=== PATIENT | female | born 1955 | race American Indian/Alaskan Native ===

== ENCOUNTER 2017-03-22 12:38 | Inpatient (IN) | payer OTHER ==
--- NOTE | 2017-03-22 12:56 | Emergency Department Report ---
Chief Complaint: Chest Pain Stated Complaint: CHEST PAIN Time Seen by Provider: 03/22/17 12:51 - HPI History of Present Illness: PT c/o chest pain x 6 months. PT states the pain started when she had her CABG. 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 PT States the nurse told her to go to the ED. PT states her pain worsened today. PT states her pain goes from her left nipple to back - ROS Review of Systems: + chest pain + dizziness - Exam Physical Exam: obese female, no acute distress noted ambulatory with cane with steady gait RRR MSE screening note: Focused history and physical exam performed. Due to findings the following was ordered: xr, ekg, labs ED Disposition for MSE Condition: Stable
[2017-03-22] MEDS ORDERED: DUONEB *Not for PRN Use IH ONE (12:58)
[2017-03-22 13:19] LABS: Hematocrit 35.1 % (30.3-42.9); Hemoglobin 11.3 gm/dl (10.1-14.3); Mean Corpuscular HGB Conc 32 % (30-34); Mean Corpuscular Hemoglobin 27 pg (28-32); Mean Corpuscular Volume 83 fl (79-97); Platelet Count 191 K/mm3 (140-440); Red Blood Count 4.23 M/mm3 (3.65-5.03); Red Cell Distribution Width 16.2 % (13.2-15.2); White Blood Count 4.4 K/mm3 (4.5-11.0)
[2017-03-22 13:28] LABS: Partial Thromboplastin Time 34.5 Sec. (24.2-36.6)
[2017-03-22 13:39] LABS: Alanine Aminotransferase 15 units/L (7-56); Albumin 3.9 g/dL (3.9-5); Albumin/Globulin Ratio 0.9 %; Alkaline Phosphatase 76 units/L (35-129); Anion Gap 13 mmol/L; BUN/Creatinine Ratio 18.57; Blood Urea Nitrogen 13 mg/dL (7-17); Calcium 9.1 mg/dL (8.4-10.2); Carbon Dioxide 29 mmol/L (22-30); Chloride 102.5 mmol/L (98-107); Glucose 107 mg/dL (65-100); Potassium 4.4 mmol/L (3.6-5.0); Sodium 140 mmol/L (137-145); Total Protein 8.1 g/dL (6.3-8.2)
--- NOTE | 2017-03-22 13:58 | XRay Report ---
ROUTINE CHEST, TWO VIEWS: HISTORY: chest pain. CABG changes are suspected since 08/21/16. Heart size has increased slightly but remains at the upper limits of normal. Normal pulmonary vascularity. The lungs are clear. No evidence for pneumonia, CHF or pneumothorax. IMPRESSION: No acute cardiopulmonary process identified.
[2017-03-22] MEDS ORDERED: MORPHINE IV ONE ×2 (22:49→23:39)
[2017-03-22] MEDS ORDERED: ZOFRAN IV ONE (22:49)
--- NOTE | 2017-03-22 22:54 | Emergency Department Report ---
HPI - General Chief Complaint: Chest Pain Time Seen by Provider: 03/22/17 12:51 - HPI HPI: Room 1 The patient is a 61-year-old female presenting with a chief complaint of chest pain. Patient had a history of four-vessel CABG August 2016. The patient states since the surgery she said and sharp left chest pain. Patient states she has seen her senior technical program manager in the past for this pain and they had sent her to the emergency department. The patient was at physical therapy today when she again developed the chest pain so they advised patient to go to a senior technical program manager. The patient went to senior technical program manager's office however the senior technical program manager wasn't in and so staff instructed the patient to come to the ED. The patient is to nausea vomiting shortness breath and dyspnea on exertion for the past 3 weeks. Location: Left chest Duration: Intermittent since August 2016 Quality:, Sharp, Sticking Severity: Moderate Modifying factors: [see above] Context: [see above] Mode of transportation: [not driving] ED Past Medical Hx - Past Medical History Previous Medical History?: Yes Hx Hypertension: Yes Hx Diabetes: Yes Hx Arthritis: Yes Additional medical history: Hernia, acid reflux, elevated cholesterol - Surgical History Past Surgical History?: Yes Hx Open Heart Surgery: Yes Additional Surgical History: Wrist, rotator cuff, - Family History Family history: no significant - Social History Smoking Status: Never Smoker Substance Use Type: None - Medications Home Medications: Home Medications Medication Instructions Recorded Confirmed Last Taken Type AtorvaSTATin [Lipitor] 40 mg PO DAILY 08/21/16 08/21/16 Unknown History Cholecalciferol (Vitamin D3) 5,000 unit PO DAILY 08/21/16 08/21/16 Unknown History [Vitamin D3 3,000 unit] Hydrochlorothiazide [HCTZ] 25 mg PO QDAY 08/21/16 08/21/16 Unknown History Pantoprazole [Protonix TAB] 40 mg PO QDAY 08/21/16 08/21/16 Unknown History amLODIPine/VALSARTAN [Exforge 1 each PO DAILY 08/21/16 08/21/16 Unknown History 10-320 mg Tablet] Acetaminophen [Acetaminophen TAB] 650 mg PO Q4H PRN #30 tablet 08/23/16 Unknown Rx Aspirin EC [Aspirin Enteric Coated 325 mg PO QDAY tablet 08/23/16 Unknown Rx TAB] AtorvaSTATin [Lipitor] 40 mg PO QHS tablet 08/23/16 Unknown Rx Bisacodyl [Dulcolax suppos] 10 mg [place] QDAY PRN #30 supp.rect 08/23/16 Unknown Rx Carvedilol [Coreg] 6.25 mg PO BID tablet 08/23/16 Unknown Rx Cholecalciferol Vit D3 [Vitamin D3] 5,000 unit PO DAILY tablet 08/23/16 Unknown Rx Magnesium Hydroxide [Milk of 30 ml PO Q4H PRN #30 oral.liqd 08/23/16 Unknown Rx Magnesia] Ondansetron [Zofran INJ] 4 mg IV Q8H PRN #30 vial 08/23/16 Unknown Rx Sodium Chloride 0.9% Int [Sodium 10 ml IV PRN PRN #30 syringe 08/23/16 Unknown Rx Chloride Flush Syringe 10 ml] ED Review of Systems ROS: Stated complaint: CHEST PAIN Other details as noted in HPI Comment: All other systems reviewed and negative Constitutional: denies: chills, fever Eyes: denies: eye pain, eye discharge, vision change ENT: denies: ear pain, throat pain Respiratory: shortness of breath, SOB with exertion Cardiovascular: chest pain Endocrine: no symptoms reported Gastrointestinal: nausea, vomiting Genitourinary: denies: urgency, dysuria, discharge Musculoskeletal: denies: back pain, joint swelling, arthralgia Skin: denies: rash, lesions Neurological: denies: headache, weakness, paresthesias Psychiatric: denies: anxiety, depression Hematological/Lymphatic: denies: easy bleeding, easy bruising Physical Exam - Physical Exam Vital Signs: Vital Signs 03/22/17 03/22/17 03/22/17 12:54 21:15 21:30 Temperature 98 F Pulse Rate 78 67 70 Respiratory 16 13 16 Rate Blood Pressure 186/96 170/80 O2 Sat by Pulse 100 99 100 Oximetry Physical Exam: GENERAL: The patient is well-developed well-nourished female lying on stretcher not appearing to be in acute distress. [] HEENT: Normocephalic. Atraumatic. Extraocular motions are intact. Patient has moist mucous membranes. NECK: Supple. Trachea midline CHEST/LUNGS: Clear to auscultation. There is no respiratory distress noted. HEART/CARDIOVASCULAR: Regular. There is no tachycardia. There is no gallop rub or murmur. ABDOMEN: Abdomen is soft, nontender. Patient has normal bowel sounds. There is no abdominal distention. SKIN: There is no rash. There is trace bilateral lower extremity pitting edema. There is no diaphoresis. NEURO: The patient is awake, alert, and oriented. The patient is cooperative. The patient has normal speech MUSCULOSKELETAL: There is no evidence of acute injury. ED Course Vital Signs 03/22/17 03/22/17 03/22/17 12:54 21:15 21:30 Temperature 98 F Pulse Rate 78 67 70 Respiratory 16 13 16 Rate Blood Pressure 186/96 170/80 O2 Sat by Pulse 100 99 100 Oximetry ED Medical Decision Making - Lab Data Result diagrams: 03/22/17 13:01 03/22/17 13:01 Laboratory Tests 03/22/17 03/22/17 03/22/17 13:01 13:01 13:01 WBC 4.4 L RBC 4.23 Hgb 11.3 Hct 35.1 MCV 83 MCH 27 L MCHC 32 RDW 16.2 H Plt Count 191 Lymph % (Auto) 43.5 H Wirt % (Auto) 11.3 H Eos % (Auto) 5.0 H Baso % (Auto) 1.0 Lymph # 1.9 Wirt # 0.5 Eos # 0.2 Baso # 0.0 Seg Neutrophils % 39.2 L Seg Neutrophils # 1.7 L PT 13.1 INR 1.00 APTT 34.5 Sodium 140 Potassium 4.4 Chloride 102.5 Carbon Dioxide 29 Anion Gap 13 BUN 13 Creatinine 0.7 Estimated GFR > 60 BUN/Creatinine Ratio 18.57 Glucose 107 H Calcium 9.1 Total Bilirubin 0.40 AST 17 ALT 15 Alkaline Phosphatase 76 Troponin T < 0.010 NT-Pro-B Natriuret Pep 98.31 Total Protein 8.1 Albumin 3.9 Albumin/Globulin Ratio 0.9 03/22/17 18:51 WBC RBC Hgb Hct MCV MCH MCHC RDW Plt Count Lymph % (Auto) Wirt % (Auto) Eos % (Auto) Baso % (Auto) Lymph # Wirt # Eos # Baso # Seg Neutrophils % Seg Neutrophils # PT INR APTT Sodium Potassium Chloride Carbon Dioxide Anion Gap BUN Creatinine Estimated GFR BUN/Creatinine Ratio Glucose Calcium Total Bilirubin AST ALT Alkaline Phosphatase Troponin T < 0.010 NT-Pro-B Natriuret Pep Total Protein Albumin Albumin/Globulin Ratio - EKG Data -: EKG Interpreted by Ne EKG shows normal: sinus rhythm Rate: normal - EKG Data When compared to previous EKG there are: changes noted Interpretation: nonspecific ST-T wave jaswinder (Flat T-wave in lead 1, T wave inversion in lead aVL and V2 when compared to previous EKG dated 08/21/2016) - Radiology Data Radiology results: image reviewed (chest x-ray) interpreted by me: Chest x-ray-no focal infiltrates, no pneumothorax - Differential Diagnosis postop pain, ACS, GERD, pericarditis, CHF Critical care attestation.: If time is entered above; I have spent that time in minutes in the direct care of this critically ill patient, excluding procedure time. ED Disposition Clinical Impression: Chest pain, Dyspnea on exertion, T wave inversion in EKG Disposition: 09 OP ADMIT IP TO THIS HOSP Is pt being admited?: Yes Does the pt Need Aspirin: Yes Condition: Fair Instructions: Chest Pain (ED) Referrals: PRIMARY CARE, [Primary Care Provider] - 3-5 Days Time of Disposition: 23:02 (hospitalist paged)
[2017-03-22] MEDS ORDERED: ASPIRIN PO ONE (22:55)
[2017-03-22] MEDS ORDERED: MORPHINE IV PRN (23:45)
[2017-03-22] MEDS ORDERED: DULCOLAX PR PRN (23:45)
--- NOTE | 2017-03-22 23:48 | History and Physical Report ---
History of Present Illness Date of examination: 03/22/17 History of present illness: 61-year-old lady with a history of coronary artery disease, hyperlipidemia, hypertension, GERD comes emergency room with complaints of chest pain in the epigastric area. She describes this pain as sharp, constant since CABG in August , intensity 5/10, no radiation, she cannot identify exacerbating or relieving factors. Some nausea, no shortness of breath, diaphoresis or palpitation Review Of Systems: Constitutional: no weight loss Ears, eyes, nose, mouth and throat: no nasal congestion, no nasal discharge, no sinus pressure, blurry vision, diplopia Neck: No neck pain or rigidity. Cardiovascular:orthopnea, palpitations Respiratory: No shortness of breath, cough Gastrointestinal: abdominal pain, hematochezia Genitourinary : no dysuria, frequency , hematuria Musculoskeletal: no muscle ache Integumentary: no rash, no pruritis Neurological: no parathesias, focal weakness Endocrine: no cold or heat intolerance, no polyuria or polydipsia Hematologic/Lymphatic: no easy bruising, no easy bleeding, no gland swelling Allergic/Immunologic: no urticaria, no angioedema. PAST MEDICAL HISTORY:hypertension, coronary artery disease, hyperlipidemia, GERD PAST SURGICAL HISTORY: CABG, rotator cuff, , wrist FAMILY HISTORY: Coronary artery disease SOCIAL HISTORY: Denies alcohol, tobacco, drugs Medications and Allergies Allergies Allergy/AdvReac Type Severity Reaction Status Date / Time amlodipine besylate Allergy Swelling Verified 08/23/16 12:09 [From Exforge] propofol Allergy Swelling Verified 08/20/16 17:07 valsartan [From Exforge] Allergy Swelling Verified 08/23/16 12:09 Home Medications Medication Instructions Recorded Confirmed Last Taken Type AtorvaSTATin [Lipitor] 40 mg PO DAILY 08/21/16 08/21/16 Unknown History Cholecalciferol (Vitamin D3) 5,000 unit PO DAILY 08/21/16 08/21/16 Unknown History [Vitamin D3 3,000 unit] Hydrochlorothiazide [HCTZ] 25 mg PO QDAY 08/21/16 08/21/16 Unknown History Pantoprazole [Protonix TAB] 40 mg PO QDAY 08/21/16 08/21/16 Unknown History amLODIPine/VALSARTAN [Exforge 1 each PO DAILY 08/21/16 08/21/16 Unknown History 10-320 mg Tablet] Acetaminophen [Acetaminophen TAB] 650 mg PO Q4H PRN #30 tablet 08/23/16 Unknown Rx Aspirin EC [Aspirin Enteric Coated 325 mg PO QDAY tablet 08/23/16 Unknown Rx TAB] AtorvaSTATin [Lipitor] 40 mg PO QHS tablet 08/23/16 Unknown Rx Bisacodyl [Dulcolax suppos] 10 mg [place] QDAY PRN #30 supp.rect 08/23/16 Unknown Rx Carvedilol [Coreg] 6.25 mg PO BID tablet 08/23/16 Unknown Rx Cholecalciferol Vit D3 [Vitamin D3] 5,000 unit PO DAILY tablet 08/23/16 Unknown Rx Magnesium Hydroxide [Milk of 30 ml PO Q4H PRN #30 oral.liqd 08/23/16 Unknown Rx Magnesia] Ondansetron [Zofran INJ] 4 mg IV Q8H PRN #30 vial 08/23/16 Unknown Rx Sodium Chloride 0.9% Int [Sodium 10 ml IV PRN PRN #30 syringe 08/23/16 Unknown Rx Chloride Flush Syringe 10 ml] Exam - Physical Exam Narrative exam: Gen. appearance: Patient lying in bed in no acute distress HEENT: Normocephalic/atraumatic, pupils equal round reactive to light, extra alkaline movement intact, no scleral icterus, no JVD or thyromegaly or nodule, neck is supple, mucous membrane moist, no erythema or exudate Heart: S1-S2, regular rate and rhythm Lungs: Clear to auscultation bilateral breathing comfortable Abdomen: Positive bowel sounds, nontender, nondistended, no organomegaly Extremities: No edema, cyanosis, clubbing Neuro:: Oriented 3 , cranial nerves II-12 intact, speech, motor intact Skin: No rash, nodules, warm dry - Constitutional Vitals: Temp Pulse Resp BP Pulse Ox 98 F 78 13 157/74 99 03/22/17 12:54 03/22/17 23:30 03/22/17 23:30 03/22/17 23:30 03/22/17 23:30 Results - Labs CBC & Chem 7: 03/22/17 13:01 03/22/17 13:01 Labs: Abnormal lab results 03/22/17 03/22/17 Range/Units 13:01 13:01 WBC 4.4 L (4.5-11.0) K/mm3 MCH 27 L (28-32) pg RDW 16.2 H (13.2-15.2) % Lymph % (Auto) 43.5 H (13.4-35.0) % [place] % (Auto) 11.3 H (0.0-7.3) % Eos % (Auto) 5.0 H (0.0-4.3) % Seg Neutrophils % 39.2 L (40.0-70.0) % Seg Neutrophils # 1.7 L (1.8-7.7) K/mm3 Glucose 107 H (65-100) mg/dL - Imaging and Cardiology EKG: image reviewed Abdominal x-ray: image reviewed Assessment and Plan Assessment Atypical chest pain Coronary artery disease Hypertension GERD Plan Admit to medicine Check cardiac enzymes, consult cardiology Continue appropriate outpatient medications DVT prophylaxis
[2017-03-23 00:41] LABS: Creatine Kinase 106 units/L (30-135)
[2017-03-23 01:12] LABS: Creatine Kinase MB < 1.0 ng/mL (0.0-4.0)
[2017-03-23] MEDS: DUONEB *Not for PRN Use IH SCH ×4 (02:14→20:31)
[2017-03-23 06:45] LABS: Basophils % (Auto) 0.6 % (0.0-1.8); Eosinophils % (Auto) 3.9 % (0.0-4.3); Hematocrit 33.4 % (30.3-42.9); Hemoglobin 10.6 gm/dl (10.1-14.3); Mean Corpuscular HGB Conc 32 % (30-34); Mean Corpuscular Hemoglobin 27 pg (28-32); Mean Corpuscular Volume 84 fl (79-97); Platelet Count 188 K/mm3 (140-440); Red Blood Count 3.99 M/mm3 (3.65-5.03); Red Cell Distribution Width 15.9 % (13.2-15.2); White Blood Count 5.2 K/mm3 (4.5-11.0)
[2017-03-23 07:07] LABS: Anion Gap 14 mmol/L; BUN/Creatinine Ratio 18.57; Blood Urea Nitrogen 13 mg/dL (7-17); Calcium 8.7 mg/dL (8.4-10.2); Carbon Dioxide 30 mmol/L (22-30); Chloride 102.2 mmol/L (98-107); Glucose 102 mg/dL (65-100); Potassium 4.3 mmol/L (3.6-5.0); Sodium 142 mmol/L (137-145)
[2017-03-23 07:20] LABS: Creatine Kinase MB 1.2 ng/mL (0.0-4.0)
--- NOTE | 2017-03-23 09:27 | Consultation ---
History of Present Illness Consult date: 03/23/17 Requesting physician: SRIDEVI HUSSEIN Consult reason: chest pain History of present illness: The pt is a 61 YO female with a past medical history significant for CAD s/p CABG x 4 (RODRÍGUEZ to LAD, SVG to RCA, SVG to OM1 andOM2) on 08/25/2016, HTN, DM, HLP and obesity. She is followed in our office by Dr. Gaytan. She presented with c/ o chest pain, BLE numbness/tingling and pain and NUGENT. She states that she has been experiencing chest pain and BLE numbness/tingling intermittently since her CABG in 08/2016. She describes her chest pain as a midsternal and sometimes left- sided intermittent "tugging" sensation which has no clear aggravating or alleviating factors. She has also been experiencing BLE neuropathic pain since CABG, which has been treated with Neurontin 300mg TID. Over the past 3 weeks, the pt has noted progressively worsening NUGENT. She has been compliant with cardiac rehabilitation. She was at cardiac rehabilitation yesterday when she became SOB and developed chest pain. She then left cardiac rehab and drove to our [place] office to try to see Dr. Gaytan but he was not in that office yesterday. She was then advised by our staff to report to [facility] ED for further evaluation and management. Post-CABG echo done 08/26/2016 showed EF 55-60%, impaired relaxation, mildly enlarged RV cavity size, moderate pleural effusion in left lateral region. Past History Past Medical History: CAD, diabetes, hypertension, hyperlipidemia, other (BLE neuropathy) Past Surgical History: CABG Social history: denies: smoking, alcohol abuse, prescription drug abuse Medications and Allergies Allergies Allergy/AdvReac Type Severity Reaction Status Date / Time amlodipine besylate Allergy Swelling Verified 08/23/16 12:09 [From Exforge] propofol Allergy Swelling Verified 08/20/16 17:07 valsartan [From Exforge] Allergy Swelling Verified 08/23/16 12:09 Home Medications Medication Instructions Recorded Confirmed Last Taken Type AtorvaSTATin [Lipitor] 40 mg PO DAILY 08/21/16 08/21/16 Unknown History Cholecalciferol (Vitamin D3) 5,000 unit PO DAILY 08/21/16 08/21/16 Unknown History [Vitamin D3 3,000 unit] Hydrochlorothiazide [HCTZ] 25 mg PO QDAY 08/21/16 08/21/16 Unknown History Pantoprazole [Protonix TAB] 40 mg PO QDAY 08/21/16 08/21/16 Unknown History amLODIPine/VALSARTAN [Exforge 1 each PO DAILY 08/21/16 08/21/16 Unknown History 10-320 mg Tablet] Acetaminophen [Acetaminophen TAB] 650 mg PO Q4H PRN #30 tablet 08/23/16 Unknown Rx Aspirin EC [Aspirin Enteric Coated 325 mg PO QDAY tablet 08/23/16 Unknown Rx TAB] AtorvaSTATin [Lipitor] 40 mg PO QHS tablet 08/23/16 Unknown Rx Bisacodyl [Dulcolax suppos] 10 mg [place] QDAY PRN #30 supp.rect 08/23/16 Unknown Rx Carvedilol [Coreg] 6.25 mg PO BID tablet 08/23/16 Unknown Rx Cholecalciferol Vit D3 [Vitamin D3] 5,000 unit PO DAILY tablet 08/23/16 Unknown Rx Magnesium Hydroxide [Milk of 30 ml PO Q4H PRN #30 oral.liqd 08/23/16 Unknown Rx Magnesia] Ondansetron [Zofran INJ] 4 mg IV Q8H PRN #30 vial 08/23/16 Unknown Rx Sodium Chloride 0.9% Int [Sodium 10 ml IV PRN PRN #30 syringe 08/23/16 Unknown Rx Chloride Flush Syringe 10 ml] Active Meds: Active Medications Acetaminophen (Tylenol) 650 mg PO Q4H PRN PRN Reason: Pain MILD(1-3)/Fever >100.5/RAMOS Albuterol/Ipratropium (Duoneb *Not For Prn Use*) 1 ampul IH Q6HRT [facility] Last Admin: 03/23/17 09:06 Dose: 1 ampul Bisacodyl (Dulcolax) 10 mg [place] QDAY PRN PRN Reason: Constipation unrelieved by MOM Enoxaparin Sodium (Lovenox) 40 mg SUB-Q QDAY [facility] Magnesium Hydroxide (Milk Of Magnesia) 30 ml PO Q4H PRN PRN Reason: Constipation Morphine Sulfate (Morphine) 2 mg IV Q4H PRN PRN Reason: Pain, Moderate (4-6) Ondansetron HCl (Zofran) 4 mg IV Q8H PRN PRN Reason: N/V unrelieved by Reglan Review of Systems Constitutional: no weight loss, no weight gain, no fever, no chills, no sweats Ears, nose, mouth and throat: no ear pain, no nose pain, no sinus pressure, no sinus pain Cardiovascular: chest pain, shortness of breath, dyspnea on exertion, high blood pressure, decreased exercise tolerance, no orthopnea, no palpitations, no rapid/irregular heart beat, no edema, no syncope, no lightheadedness, no paroxysmal nocturnal dyspnea, no leg edema Respiratory: shortness of breath, dyspnea on exertion, no cough, no congestion, no wheezing, no pain on inspiration Gastrointestinal: no abdominal pain, no nausea, no vomiting, no diarrhea, no constipation, no change in bowel habits Genitourinary Female: no pelvic pain, no flank pain, no dysuria, no urinary frequency, no urgency Musculoskeletal: leg numbness/tingling, no neck stiffness, no neck pain, no shooting arm pain, no arm numbness/tingling, no low back pain, no shooting leg pain, no redness of joints, no hot joints, no morning stiffness, no muscle weakness Integumentary: no rash, no pruritis, no redness, no sores, no wounds Neurological: numbness (BLE), tingling (BLE), no head injury, no weakness, no parathesias, no seizures, no syncope Endocrine: no cold intolerance, no heat intolerance Hematologic/Lymphatic: no easy bruising, no easy bleeding, no lymphadenopathy Allergic/Immunologic: no urticaria, no wheezing, no persistent infections Physical Examination Vital Signs Temp Pulse Resp BP Pulse Ox 98 F 78 16 186/96 100 03/22/17 12:54 03/22/17 12:54 03/22/17 12:54 03/22/17 12:54 03/22/17 12:54 General appearance: no acute distress HEENT: Positive: PERRL, Normocephaly Neck: Positive: neck supple, trachea midline Cardiac: Positive: Reg Rate and Rhythm, S1/S2 Lungs: Positive: Decreased Breath Sounds Neuro: Positive: Grossly Intact, Cranial Nerve 2-12 Intact Abdomen: Positive: Unremarkable, Soft, Active Bowel Sounds. Negative: Tender Skin: Positive: Clear, Other (midsternal sternotomy scar). Negative: Rash Musculoskeletal: No Fluid Collection, Normal Range of Motion Extremities: Present: upper extr. pulses, lower extr. pulses. Absent: edema Results 03/23/17 05:49 03/23/17 05:49 Cardiac Enzymes 03/23/17 03/23/17 Range/Units 01:01 05:49 CK-MB (CK-2) < 1.0 1.2 (0.0-4.0) ng/mL CBC 03/23/17 Range/Units 05:49 WBC 5.2 (4.5-11.0) K/mm3 RBC 3.99 (3.65-5.03) M/mm3 Hgb 10.6 (10.1-14.3) gm/dl Hct 33.4 (30.3-42.9) % Plt Count 188 (140-440) K/mm3 Lymph # 2.5 (1.2-5.4) K/mm3 [place] # 0.6 (0.0-0.8) K/mm3 Eos # 0.2 (0.0-0.4) K/mm3 Baso # 0.0 (0.0-0.1) K/mm3 Comprehensive Metabolic Panel 03/23/17 Range/Units 05:49 Sodium 142 (137-145) mmol/L Potassium 4.3 (3.6-5.0) mmol/L Chloride 102.2 (98-107) mmol/L Carbon Dioxide 30 (22-30) mmol/L BUN 13 (7-17) mg/dL Creatinine 0.7 (0.7-1.2) mg/dL Glucose 102 H (65-100) mg/dL Calcium 8.7 (8.4-10.2) mg/dL - Imaging and Cardiology Echo: report reviewed (08/26/2016: EF 55-60%, impaired relaxation, mildly enlarged RV cavity size, moderate pleural effusion in left lateral region) Cardiac cath: report reviewed EKG: image reviewed EKG interpretations - Telemetry EKG Rhythm: Sinus Rhythm - EKG Sinus rhythms and dysrhythmias: sinus rhythm Repolarization changes or abnormalities: nonspecific abnormality, ST segment, and/or T wave Assessment and Plan Assessment: Chest pain, 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 Await findings. Obtain echo to r/o pericardial effusion. Cont ASA, resume home coreg, losartan, plavix, lipitor. Assessment and plan reviewed with pt at bedside. The patient has been seen in conjunction with Dr. Steven who agrees with the assessment and plan of care.
[2017-03-23] MEDS: LOVENOX SUB-Q SCH (10:51)
--- NOTE | 2017-03-23 11:57 | Progress Note ---
Assessment and Plan Assessment and plan: 61-year-old lady with a history of coronary artery disease, hyperlipidemia, hypertension, GERD comes emergency room with complaints of chest pain in the epigastric area. She describes this pain as sharp, constant since CABG in August , intensity 5/10, no radiation, she cannot identify exacerbating or relieving factors. Some nausea, no shortness of breath, diaphoresis or palpitation. She states the pain is worse when she lays flat, she's been having intermittent Pinching sensation in her chest and she had her CABG. Atypical chest pain Status post recent CABG, stress test negative Check echo to rule out pericarditis cardiology appreciated Coronary artery disease -Continue cardiac medications Hypertension Continue BP meds GERD Continue PPI History Interval history: [place] is a 61-year-old woman who presented with chest pain which she describes as a pinching type of pain that she's been having since she had CABG Hospitalist Physical - Physical exam Narrative exam: General.: Appears well, no distress, nontoxic HEENT: Moist mucous membranes, extraocular muscles intact, no lymphadenopathy Neck: supple Cardiac: S1-S2 heard Lungs: clear to auscultation bilaterally Abdomen: soft , nontender, nondistended, bowel sounds positive Extremities: no edema clubbing or cyanosis Skin: no rash or lesions Neurologic: no gross focal deficits Psych: appropriate behavior, appropriate mood, corporative, judgment intact - Constitutional Vitals: Temp Pulse Resp BP Pulse Ox 97.3 F L 78 16 147/80 100 03/23/17 08:00 03/23/17 08:11 03/23/17 08:11 03/23/17 08:00 03/23/17 09:06 General appearance: Present: no acute distress Results - Labs CBC & Chem 7: 03/23/17 05:49 03/23/17 05:49 Labs: Laboratory Last Values WBC 5.2 K/mm3 (4.5-11.0) 03/23/17 05:49 RBC 3.99 M/mm3 (3.65-5.03) 03/23/17 05:49 Hgb 10.6 gm/dl (10.1-14.3) 03/23/17 05:49 Hct 33.4 % (30.3-42.9) 03/23/17 05:49 MCV 84 fl (79-97) 03/23/17 05:49 MCH 27 pg (28-32) L 03/23/17 05:49 MCHC 32 % (30-34) 03/23/17 05:49 RDW 15.9 % (13.2-15.2) H 03/23/17 05:49 Plt Count 188 K/mm3 (140-440) 03/23/17 05:49 Lymph % (Auto) 48.6 % (13.4-35.0) H 03/23/17 05:49 [place] % (Auto) 11.9 % (0.0-7.3) H 03/23/17 05:49 Eos % (Auto) 3.9 % (0.0-4.3) 03/23/17 05:49 Baso % (Auto) 0.6 % (0.0-1.8) 03/23/17 05:49 Lymph # 2.5 K/mm3 (1.2-5.4) 03/23/17 05:49 [place] # 0.6 K/mm3 (0.0-0.8) 03/23/17 05:49 Eos # 0.2 K/mm3 (0.0-0.4) 03/23/17 05:49 Baso # 0.0 K/mm3 (0.0-0.1) 03/23/17 05:49 Seg Neutrophils % 35.0 % (40.0-70.0) L 03/23/17 05:49 Seg Neutrophils # 1.8 K/mm3 (1.8-7.7) 03/23/17 05:49 PT 13.1 Sec. (12.2-14.9) 03/22/17 13:01 INR 1.00 (0.87-1.13) 03/22/17 13:01 APTT 34.5 Sec. (24.2-36.6) 03/22/17 13:01 Sodium 142 mmol/L (137-145) 03/23/17 05:49 Potassium 4.3 mmol/L (3.6-5.0) 03/23/17 05:49 Chloride 102.2 mmol/L (98-107) 03/23/17 05:49 Carbon Dioxide 30 mmol/L (22-30) 03/23/17 05:49 Anion Gap 14 mmol/L 03/23/17 05:49 BUN 13 mg/dL (7-17) 03/23/17 05:49 Creatinine 0.7 mg/dL (0.7-1.2) 03/23/17 05:49 Estimated GFR > 60 ml/min 03/23/17 05:49 BUN/Creatinine Ratio 18.57 % 03/23/17 05:49 Glucose 102 mg/dL (65-100) H 03/23/17 05:49 Calcium 8.7 mg/dL (8.4-10.2) 03/23/17 05:49 Total Bilirubin 0.40 mg/dL (0.1-1.2) 03/22/17 13:01 AST 17 units/L (5-40) 03/22/17 13:01 ALT 15 units/L (7-56) 03/22/17 13:01 Alkaline Phosphatase 76 units/L (35-129) 03/22/17 13:01 Total Creatine Kinase 92 units/L (30-135) 03/23/17 05:49 CK-MB (CK-2) 1.2 ng/mL (0.0-4.0) 03/23/17 05:49 CK-MB (CK-2) Rel Index 1.3 (0-4) 03/23/17 05:49 Troponin T < 0.010 ng/mL (0.00-0.029) 03/23/17 05:49 NT-Pro-B Natriuret Pep 98.31 pg/mL (0-900) 03/22/17 13:01 Total Protein 8.1 g/dL (6.3-8.2) 03/22/17 13:01 Albumin 3.9 g/dL (3.9-5) 03/22/17 13:01 Albumin/Globulin Ratio 0.9 % 03/22/17 13:01 - Imaging and Cardiology Chest x-ray: image reviewed (no acute findings)
[2017-03-23] MEDS ORDERED: LEXISCAN IV ONE ×2 (12:13→13:00)
--- NOTE | 2017-03-23 14:31 | Event Note ---
Date: 03/23/17 lexiscan MPI stress test this AM showed small mild fixed apical defect of uncertain significance, no ischemia, EF 76%. Await echo. Nila JEAN NP / DR. BUTLER
[2017-03-23] MEDS: ZOFRAN IV PRN (16:22)
[2017-03-23] MEDS: TYLENOL PO PRN (20:31)
[2017-03-23] MEDS: MILK OF MAGNESIA PO PRN (20:32)
[2017-03-23] MEDS: COREG PO SCH (21:38)
[2017-03-24] MEDS: DUONEB *Not for PRN Use IH SCH ×4 (01:53→21:03)
--- NOTE | 2017-03-24 04:56 | Treadmill Report ---
SINGLE ISOTOPE DUAL STUDY MYOCARDIAL PERFUSION SCAN REPORT DATE OF PROCEDURE: 03/23/2017 SEEN BY: Paolo Elizondo MD. DESCRIPTION OF PROCEDURE: The patient received 10 mCi of technetium 99m Myoview intravenously under resting conditions. Resting myocardial perfusion scan was done. Subsequently, the patient underwent Lexiscan stress test as per the protocol. During Lexiscan stress, the patient received 28 mCi of technetium 99m Myoview intravenously. After 30-60 minutes, post stress images were done. Computerized reconstruction images were performed for analysis. The post-stress images revealed small mild apical perfusion defect. Gated study did not reveal any wall motion abnormality. The left ventricular ejection fraction was normal and it was calculated to be 76%. The resting images again revealed small mild apical perfusion defect. CONCLUSIONS: 1. Small mild fixed and apical perfusion defect of uncertain significance. 2. No wall motion abnormality. 3. Hyperdynamic left ventricle with left ventricular ejection fraction of 76%. [facility]# [id number] [facility]
[2017-03-24] MEDS: COREG PO SCH ×2 (10:54→21:09)
[2017-03-24] MEDS: LOVENOX SUB-Q SCH (10:54)
[2017-03-24] MEDS: COZAAR PO SCH (10:55)
[2017-03-24] MEDS: BABY ASPIRIN PO SCH (10:55)
[2017-03-24] MEDS: ZOFRAN IV PRN (10:55)
[2017-03-24] MEDS: TYLENOL PO PRN ×2 (10:56→21:10)
[2017-03-24] MEDS: PLAVIX PO SCH (10:57)
--- NOTE | 2017-03-24 11:11 | Progress Note ---
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 Obesity Plan: s/p lexiscan MPI stress test yesterday, which showed small mild fixed apical defect of uncertain significance, no ischemia, EF 76%. Await limited echo. Cont ASA, coreg, losartan, plavix, lipitor. Assessment and plan reviewed with pt at bedside. The patient has been seen in conjunction with Dr. Steven who agrees with the assessment and plan of care. Subjective Date of service: 03/24/17 Principal diagnosis: atypical chest pain Interval history: Pt resting comfortably, c/o some nausea overnight. Underwent limited echo this AM. Still c/o midsternal chest "tugging" discomfort. Also c/o some left-sided soreness under her left breast, which was elicited this AM with echo probe during echo. Objective Last Vital Signs Temp 97.6 F 03/24/17 07:57 Pulse 67 03/24/17 10:55 Resp 20 03/24/17 07:57 BP 142/79 03/24/17 10:55 Pulse Ox 96 03/24/17 07:57 - Physical Examination HEENT: Positive: PERRL, Normocephaly Neck: Positive: neck supple, trachea midline Cardiac: Positive: Reg Rate and Rhythm, S1/S2 Lungs: Positive: clear to auscultation Neuro: Positive: Grossly Intact, Cranial Nerve 2-12 Intact Abdomen: Positive: Unremarkable, Soft, Active Bowel Sounds. Negative: Tender Skin: Positive: Clear, Other (midsternal sternotomy scar). Negative: Rash Musculoskeletal: No Fluid Collection, Normal Range of Motion Extremities: Present: upper extr. pulses, lower extr. pulses. Absent: edema - Imaging and Cardiology EKG: image reviewed Echo: report reviewed (08/26/2016: EF 55-60%, impaired relaxation, mildly enlarged RV cavity size, moderate pleural effusion in left lateral region) Cardiac cath: report reviewed - EKG Sinus rhythms and dysrhythmias: sinus rhythm Repolarization changes or abnormalities: nonspecific abnormality, ST segment, and/or T wave
[2017-03-24] MEDS: MILK OF MAGNESIA PO PRN (12:37)
--- NOTE | 2017-03-24 16:11 | Event Note ---
Date: 03/24/17 Echo reviewed with [facility]. Currently stable cardiac status. Pt may discharge home from cardiology standpoint. Recommend follow up in our office with Denice Thacker NP, within 2 weeks of hospital discharge ([phone]). Nila JEAN NP / DR. BUTLER
--- NOTE | 2017-03-24 18:20 | Progress Note ---
Assessment and Plan Assessment and plan: 61-year-old lady with a history of coronary artery disease, hyperlipidemia, hypertension, GERD comes emergency room with complaints of chest pain in the epigastric area. She describes this pain as sharp, constant since CABG in August , intensity 5/10, no radiation, she cannot identify exacerbating or relieving factors. Some nausea, no shortness of breath, diaphoresis or palpitation. She states the pain is worse when she lays flat, she's been having intermittent Pinching sensation in her chest and she had her CABG. Atypical chest pain Status post recent CABG, stress test negative Check echo to rule out pericarditis cardiology appreciated Coronary artery disease -Continue cardiac medications Hypertension Continue BP meds GERD Continue PPI History Interval history: [place] is a 61-year-old woman who presented with chest pain which she describes as a pinching type of pain that she's been having since she had CABG States that pain is unchanged, as far, Pinching Sensation, All over Her Chest Wall. She denies shortness of breath Hospitalist Physical - Physical exam Narrative exam: General.: Appears well, no distress, nontoxic HEENT: Moist mucous membranes, extraocular muscles intact, no lymphadenopathy Neck: supple Cardiac: S1-S2 heard Lungs: clear to auscultation bilaterally Abdomen: soft , nontender, nondistended, bowel sounds positive Extremities: no edema clubbing or cyanosis Skin: no rash or lesions Neurologic: no gross focal deficits Psych: appropriate behavior, appropriate mood, corporative, judgment intact - Constitutional Vitals: Temp Pulse Resp BP Pulse Ox 97.1 F L 74 16 144/76 97 03/24/17 15:44 03/24/17 15:44 03/24/17 15:44 03/24/17 15:44 03/24/17 15:44 General appearance: Present: no acute distress Results - Labs CBC & Chem 7: 03/23/17 05:49 03/23/17 05:49 Labs: Laboratory Last Values WBC 5.2 K/mm3 (4.5-11.0) 03/23/17 05:49 RBC 3.99 M/mm3 (3.65-5.03) 03/23/17 05:49 Hgb 10.6 gm/dl (10.1-14.3) 03/23/17 05:49 Hct 33.4 % (30.3-42.9) 03/23/17 05:49 MCV 84 fl (79-97) 03/23/17 05:49 MCH 27 pg (28-32) L 03/23/17 05:49 MCHC 32 % (30-34) 03/23/17 05:49 RDW 15.9 % (13.2-15.2) H 03/23/17 05:49 Plt Count 188 K/mm3 (140-440) 03/23/17 05:49 Lymph % (Auto) 48.6 % (13.4-35.0) H 03/23/17 05:49 [place] % (Auto) 11.9 % (0.0-7.3) H 03/23/17 05:49 Eos % (Auto) 3.9 % (0.0-4.3) 03/23/17 05:49 Baso % (Auto) 0.6 % (0.0-1.8) 03/23/17 05:49 Lymph # 2.5 K/mm3 (1.2-5.4) 03/23/17 05:49 [place] # 0.6 K/mm3 (0.0-0.8) 03/23/17 05:49 Eos # 0.2 K/mm3 (0.0-0.4) 03/23/17 05:49 Baso # 0.0 K/mm3 (0.0-0.1) 03/23/17 05:49 Seg Neutrophils % 35.0 % (40.0-70.0) L 03/23/17 05:49 Seg Neutrophils # 1.8 K/mm3 (1.8-7.7) 03/23/17 05:49 PT 13.1 Sec. (12.2-14.9) 03/22/17 13:01 INR 1.00 (0.87-1.13) 03/22/17 13:01 APTT 34.5 Sec. (24.2-36.6) 03/22/17 13:01 Sodium 142 mmol/L (137-145) 03/23/17 05:49 Potassium 4.3 mmol/L (3.6-5.0) 03/23/17 05:49 Chloride 102.2 mmol/L (98-107) 03/23/17 05:49 Carbon Dioxide 30 mmol/L (22-30) 03/23/17 05:49 Anion Gap 14 mmol/L 03/23/17 05:49 BUN 13 mg/dL (7-17) 03/23/17 05:49 Creatinine 0.7 mg/dL (0.7-1.2) 03/23/17 05:49 Estimated GFR > 60 ml/min 03/23/17 05:49 BUN/Creatinine Ratio 18.57 % 03/23/17 05:49 Glucose 102 mg/dL (65-100) H 03/23/17 05:49 Calcium 8.7 mg/dL (8.4-10.2) 03/23/17 05:49 Total Bilirubin 0.40 mg/dL (0.1-1.2) 03/22/17 13:01 AST 17 units/L (5-40) 03/22/17 13:01 ALT 15 units/L (7-56) 03/22/17 13:01 Alkaline Phosphatase 76 units/L (35-129) 03/22/17 13:01 Total Creatine Kinase 92 units/L (30-135) 03/23/17 05:49 CK-MB (CK-2) 1.2 ng/mL (0.0-4.0) 03/23/17 05:49 CK-MB (CK-2) Rel Index 1.3 (0-4) 03/23/17 05:49 Troponin T < 0.010 ng/mL (0.00-0.029) 03/23/17 13:47 NT-Pro-B Natriuret Pep 98.31 pg/mL (0-900) 03/22/17 13:01 Total Protein 8.1 g/dL (6.3-8.2) 03/22/17 13:01 Albumin 3.9 g/dL (3.9-5) 03/22/17 13:01 Albumin/Globulin Ratio 0.9 % 03/22/17 13:01
[2017-03-25] MEDS: DUONEB *Not for PRN Use IH SCH ×3 (02:35→14:22)
[2017-03-25] MEDS ORDERED: PROTONIX PO SCH (10:00)
[2017-03-25] MEDS ORDERED: HCTZ PO SCH (10:00)
--- NOTE | 2017-03-25 10:22 | Discharge Summary ---
Providers - Providers Date of Admission: 03/22/17 23:45 Attending physician: NARENDRA GRAMAJO MD Primary care physician: SHASHANK AHN MD Hospitalization Condition: Fair Hospital course: 61-year-old lady with a history of coronary artery disease, hyperlipidemia, hypertension, GERD comes emergency room with complaints of chest pain in the epigastric area, she's been having intermittent Pinching sensation in her chest since she had her CABG. She was comanaged by cardiology, she received a stress test which was negative, she also received an echo that was negative for pericarditis, she also had PFT which only showed mild restrictive disease, VQ scan and LE doppler was neg for VTE. Her pain was most likely due to costochondritis and anxiety. Therefore she was advised to take over-the- counter pain medications, specifically tylenol, and she was also given low- dose Xanax. Discharge diagnoses Atypical chest pain due to costochondritis Anxiety disorder CAD Hypertension GERD Disposition: DC- TO HOME OR SELFCARE Time spent for discharge: 33 minutes Core Measure Documentation - Palliative Care Palliative Care/ Comfort Measures: Not Applicable - Core Measures Any of the following diagnoses?: none Exam - Constitutional Vitals: Temp Pulse Resp BP Pulse Ox 97.7 F 71 20 167/84 97 03/25/17 07:40 03/25/17 07:51 03/25/17 07:40 03/25/17 07:40 03/25/17 07:51 General appearance: Present: no acute distress, well-nourished - EENT Eyes: Present: PERRL ENT: hearing intact, clear oral mucosa - Neck Neck: Present: supple, normal ROM - Respiratory Respiratory effort: normal Respiratory: bilateral: CTA - Cardiovascular Heart Sounds: Present: S1 & S2. Absent: rub, click - Extremities Extremities: pulses symmetrical, No edema Peripheral Pulses: within normal limits - Abdominal General gastrointestinal: Present: soft, non-tender, non-distended, normal bowel sounds Female genitourinary: Present: normal - Integumentary Integumentary: Present: clear, warm, dry - Musculoskeletal Musculoskeletal: gait normal, strength equal bilaterally - Psychiatric Psychiatric: appropriate mood/affect, intact judgment & insight - Neurologic Neurologic: CNII-XII intact, moves all extremities Plan Follow up with: PRIMARY CARE, [Primary Care Provider] - 3-5 Days INDESIREE MADDOX MD [Staff Physician] - 7 Days Prescriptions: AtorvaSTATin [Lipitor] 20 mg PO QHS #30 tablet ALPRAZolam [Xanax TAB] 0.5 mg PO BID PRN #30 tab PRN Reason: Anxiety Aspirin EC [Aspirin Enteric Coated TAB] 81 mg PO QDAY #30 tablet. Carvedilol [Coreg] 25 mg PO BID #60 tablet Clopidogrel [Plavix] 75 mg PO QDAY #30 tablet Hydrochlorothiazide [HCTZ] 25 mg PO QDAY #30 tablet Losartan [Cozaar] 100 mg PO QDAY 30 Days Pantoprazole [Protonix TAB] 40 mg PO QDAY #30 tablet traMADol [Ultram 50 MG tab] 50 mg PO Q4HR PRN #30 tablet PRN Reason: Pain
[2017-03-25] MEDS: BABY ASPIRIN PO SCH (10:26)
[2017-03-25] MEDS: COZAAR PO SCH (10:26)
[2017-03-25] MEDS: COREG PO SCH (10:26)
[2017-03-25] MEDS: PLAVIX PO SCH (10:27)
[2017-03-25] MEDS: LOVENOX SUB-Q SCH (10:27)
--- NOTE | 2017-03-25 10:55 | Cat Scan Report ---
FINAL REPORT EXAM: CT ANGIO CHEST HISTORY: sob TECHNIQUE: A CT angiogram was obtained of the chest following intravenous injection of 100 cc of Omnipaque 350. MIP reconstructions were obtained also. There are no previous studies available for comparison. FINDINGS: There is no evidence of pulmonary embolus or aortic dissection. Heart is mildly enlarged. There are sternotomy sutures noted. There is a small right-sided pleural effusion. There are no localized infiltrates. At the thoracoabdominal junction there is a moderate size hiatal hernia. At the thoracic inlet the thyroid gland appears normal. The skeletal structures reveals multilevel disc degeneration in the thoracic spine. IMPRESSION: No evidence of pulmonary embolus or aortic dissection. Small right-sided pleural effusion. Moderate size hiatal hernia noted.
[2017-03-25 16:02] VITALS: BP 145/68
--- NOTE | 2017-03-28 07:33 | Vascular Lab Report ---
LOWER EXTREMITY VENOUS DUPLEX: REASON FOR EXAM: Edema of the lower extremities. COMMENTS ON THE RIGHT: All veins visualized are freely compressible without evidence of internal echogenicity. Flow is spontaneous and phasic throughout. COMMENTS ON THE LEFT: All veins visualized are freely compressible without evidence of internal echogenicity. Flow is spontaneous and phasic throughout. IMPRESSION: No evidence of acute or chronic deep venous thrombosis in either lower extremity.
== END 2017-03-25 18:14 | disposition home or self-care (01) | DRG 206 ==
LOC: ED 12:38 → 4A 23:45
PROVIDERS: ADMIT Internal Medicine; ATTEND Internal Medicine
DX: M94.0 Chondrocostal junction syndrome [Tietze] (principal); Z68.42 Body mass index [BMI] 45.0-49.9, adult; I10 Essential (primary) hypertension; K21.9 Gastro-esophageal reflux disease without esophagitis; E78.5 Hyperlipidemia, unspecified; E66.9 Obesity, unspecified; M19.90 Unspecified osteoarthritis, unspecified site; I25.10 Atherosclerotic heart disease of native coronary artery without angina pectoris; E11.40 Type 2 diabetes mellitus with diabetic neuropathy, unspecified; F41.9 Anxiety disorder, unspecified; Z88.8 Allergy status to other drugs, medicaments and biological substances; Z98.891 History of uterine scar from previous surgery; Z79.82 Long term (current) use of aspirin; Z79.899 Other long term (current) drug therapy; Z82.49 Family history of ischemic heart disease and other diseases of the circulatory system; Z95.1 Presence of aortocoronary bypass graft
CPT/HCPCS: 36415; 71020; 71275; 78452; 80048; 80053; 82550; 82553; 83880; 84484; 85025; 85379; 85610; 85730; 93005; 93010; 93017; 93308; 93321; 93325; 93970; 94010; 94640; 94760; 96374; 96375; A9270-GY; A9502; J1650; J2270; J2405; J2785; Q9967

== ENCOUNTER 2020-03-25 11:43 | Outpatient (CLI) | payer OTHER ==
--- NOTE | 2020-03-25 12:59 | XRay Report ---
RIGHT ELBOW 3 VIEWS INDICATION / CLINICAL INFORMATION: PAIN IN RIGHT ELBOW. COMPARISON: None available. FINDINGS: No significant skeletal abnormality Signer Name: Rey Zapata MD FACSaurabh Signed: 03/25/2020 12:54 PM Workstation Name: [id number]
== END 2020-03-25 11:44 | disposition home or self-care (01) ==
LOC: XRAY 11:43
PROVIDERS: ATTEND Internal Medicine
DX: M25.521 Pain in right elbow (principal)

== ENCOUNTER 2021-05-17 09:49 | Emergency (ER) | payer OTHER ==
[2021-05-17] MEDS ORDERED: SODIUM CHLORIDE 0.9% 1000 ML 1,000 ML IV ONE (10:30)
[2021-05-17] MEDS ORDERED: ONDANSETRON 4 MG/2 ML INJ IV ONE ×2 (10:30→12:50)
[2021-05-17] MEDS ORDERED: MORPHINE 4 MG/1 ML INJ IV ONE ×2 (10:30→12:50)
[2021-05-17] MEDS ORDERED: PANTOPRAZOLE 40 MG INJ IV ONE (10:31)
--- NOTE | 2021-05-17 10:36 | Emergency Department Report ---
ED Abdominal Pain HPI - General Chief Complaint: Abdominal Pain Stated Complaint: ABD PAIN AND CRAMPS WITH BODYACHES PUI?: No Time Seen by Provider: 05/17/21 10:03 Source: patient Mode of arrival: Ambulatory Limitations: No Limitations - History of Present Illness Initial Comments: Chief complaint stomach hurts HPI: 65-year-old female with history of asthma, COPD, CAD status post four- vessel CABG, hypertension, diabetes mellitus, arthritis, GERD, hyperlipidemia who presents with abdominal pain since Tuesday morning. She ate tacos at home. 2 AM she had the onset of global abdominal pain worse in the right upper quadrant. She had associated vomiting diarrhea. Severe sharp pain alternating with [id number]-vqa-lifagub sensation. Abdominal surgeries include 2 C-sections. No history of appendectomy, no history of cholecystectomy. No history of hysterectomy. PCP Dr. Marie [employer] Officer Dr. Hussein RODRIGUEZ Complaint: abdominal pain -: Gradual Location: diffuse Radiation: RUQ Severity: severe Severity scale (0 -10): 10 Quality: cramping, aching, sharp Consistency: constant Improves With: nothing Worsens With: nothing Associated Symptoms: nausea, vomiting, diarrhea - Related Data Previous Rx's Medication Instructions Recorded Last Taken Type ALPRAZolam [Xanax TAB] 0.5 mg PO BID PRN #30 tab 03/25/17 Unknown Rx Aspirin EC [Halfprin EC] 81 mg PO QDAY #30 tablet. 03/25/17 Unknown Rx AtorvaSTATin [Lipitor] 20 mg PO QHS #30 tablet 03/25/17 Unknown Rx Clopidogrel [Plavix] 75 mg PO QDAY #30 tablet 03/25/17 Unknown Rx Losartan [Cozaar] 100 mg PO QDAY 30 Days tablet 03/25/17 Unknown Rx Pantoprazole [Protonix TAB] 40 mg PO QDAY #30 tablet 03/25/17 Unknown Rx carvediloL [Coreg] 25 mg PO BID #60 tablet 03/25/17 Unknown Rx hydroCHLOROthiazide [HCTZ] 25 mg PO QDAY #30 tablet 03/25/17 Unknown Rx traMADoL [Ultram 50 MG tab] 50 mg PO Q4HR PRN #30 tablet 03/25/17 Unknown Rx Ciprofloxacin HCl 500 mg PO BID 3 Days #6 tablet 05/17/21 Unknown Rx Promethazine [Phenergan] 25 mg PO Q6HR PRN #10 tab 05/17/21 Unknown Rx Allergies Allergy/AdvReac Type Severity Reaction Status Date / Time amlodipine besylate Allergy Swelling Verified 08/23/16 12:09 [From [employer]] propofol Allergy Swelling Verified 08/20/16 17:07 valsartan [From [employer]] Allergy Swelling Verified 08/23/16 12:09 ED Review of Systems ROS: Stated complaint: ABD PAIN AND CRAMPS WITH BODYACHES Other details as noted in HPI Comment: All other systems reviewed and negative Constitutional: denies: chills, fever, malaise Respiratory: denies: cough, shortness of breath Cardiovascular: denies: chest pain Gastrointestinal: abdominal pain, nausea, vomiting, diarrhea ED Past Medical Hx - Past Medical History Previous Medical History?: Yes Hx Hypertension: Yes Hx Congestive Heart Failure: No Hx Diabetes: Yes Hx Arthritis: Yes Hx Asthma: No Hx COPD: No Additional medical history: Hernia, acid reflux, elevated cholesterol - Surgical History Past Surgical History?: Yes Hx Open Heart Surgery: Yes Additional Surgical History: Wrist, rotator cuff, - Social History Smoking Status: Never Smoker - Medications Home Medications: Home Medications Medication Instructions Recorded Confirmed Last Taken Type ALPRAZolam [Xanax TAB] 0.5 mg PO BID PRN #30 tab 03/25/17 Unknown Rx Aspirin EC [Halfprin EC] 81 mg PO QDAY #30 tablet. 03/25/17 Unknown Rx AtorvaSTATin [Lipitor] 20 mg PO QHS #30 tablet 03/25/17 Unknown Rx Clopidogrel [Plavix] 75 mg PO QDAY #30 tablet 03/25/17 Unknown Rx Losartan [Cozaar] 100 mg PO QDAY 30 Days tablet 03/25/17 Unknown Rx Pantoprazole [Protonix TAB] 40 mg PO QDAY #30 tablet 03/25/17 Unknown Rx carvediloL [Coreg] 25 mg PO BID #60 tablet 03/25/17 Unknown Rx hydroCHLOROthiazide [HCTZ] 25 mg PO QDAY #30 tablet 03/25/17 Unknown Rx traMADoL [Ultram 50 MG tab] 50 mg PO Q4HR PRN #30 tablet 03/25/17 Unknown Rx Ciprofloxacin HCl 500 mg PO BID 3 Days #6 tablet 05/17/21 Unknown Rx Promethazine [Phenergan] 25 mg PO Q6HR PRN #10 tab 05/17/21 Unknown Rx ED Physical Exam - General Limitations: No Limitations General appearance: alert, in no apparent distress, other (In obvious discomfort, holding emesis bag, holding abdomen with other hand) - Head Head exam: Present: atraumatic, normocephalic - Eye Eye exam: Present: normal appearance - ENT ENT exam: Present: mucous membranes moist - Neck Neck exam: Present: normal inspection, full ROM - Respiratory Respiratory exam: Present: normal lung sounds bilaterally. Absent: respiratory distress, wheezes, rales, rhonchi - Cardiovascular Cardiovascular Exam: Present: regular rate, normal rhythm, normal heart sounds. Absent: systolic murmur, diastolic murmur, rubs, gallop - GI/Abdominal GI/Abdominal exam: Present: soft, distended, tenderness (Right upper quadrant reproducible tenderness), guarding, normal bowel sounds. Absent: rebound - Extremities Exam Extremities exam: Present: normal inspection - Neurological Exam Neurological exam: Present: alert, oriented X3 - Psychiatric Psychiatric exam: Present: normal affect, normal mood - Skin Skin exam: Present: warm, dry, intact, normal color. Absent: rash ED Course Vital Signs 05/17/21 05/17/21 05/17/21 09:53 10:52 11:00 Temperature 99.9 F H Pulse Rate 102 H 93 H Respiratory 20 17 Rate Blood Pressure 152/85 144/85 O2 Sat by Pulse 95 96 94 Oximetry 05/17/21 05/17/21 05/17/21 11:09 11:15 11:31 Temperature Pulse Rate 90 86 Respiratory 18 13 Rate Blood Pressure 144/85 135/76 O2 Sat by Pulse 97 94 92 Oximetry 05/17/21 05/17/21 12:01 12:15 Temperature Pulse Rate Respiratory Rate Blood Pressure 135/76 O2 Sat by Pulse 93 95 Oximetry ED Medical Decision Making - Lab Data Result diagrams: 05/17/21 10:41 05/17/21 10:41 - Radiology Data Radiology results: report reviewed Patient Name: DWAYNE GRIFFIN Gender: Female Date of : 1955 Referring Provider: TAMI GODINEZ Organization: [facility] Accession Number: [id number] Requested Date: May 17, 2021 11:55 Report Status: Final Requested Procedure: 1 Procedure Description: CT abdomen pelvis w con Modality: CT Findings Reporting MD: Merrick Bedolla Dictation Time: May 17, 2021 11:31 Chief Operator Reformer: Not available Railway Equipment Operator Date: CT ABDOMEN AND PELVIS WITH CONTRAST INDICATION / CLINICAL INFORMATION: R.U.Q. abdominal pain with nausea and vomiting x 4 days. TECHNIQUE: Axial CT images were obtained through the abdomen and pelvis after 100 cc Omnipaque [address] scans at this location are performed using CT dose reduction for ALARA by means of automated exposure control. COMPARISON: None available. FINDINGS: LOWER CHEST: There are trace pleural effusions with mild bibasilar atelectasis. There is moderate coronary atherosclerosis with partially visualized sternotomy changes. No other significant abnormality. LIVER: No significant abnormality. GALLBLADDER: No significant abnormality. BILE DUCTS: No significant abnormality. PANCREAS: No significant abnormality. SPLEEN: No significant abnormality. ADRENALS: No significant abnormality. KIDNEYS / URETERS: No significant abnormality. STOMACH / SMALL BOWEL: No significant abnormality. COLON: There is generalized moderate thickening, most notable along the cecum and ascending colon where there is also mild/ moderate surrounding inflammation. No other significant abnormality. APPENDIX: No significant abnormality. PERITONEUM: No free fluid. No free air. No fluid collection. LYMPH NODES: No significant adenopathy. AORTA / ARTERIES: No significant abnormality. IVC / VEINS: No significant abnormality. URINARY BLADDER: No significant abnormality. REPRODUCTIVE ORGANS: No significant abnormality. ADDITIONAL FINDINGS: None. BONES: No acute findings. There are mild degenerative changes of the spine and hips. IMPRESSION: 1. Evidence of uncomplicated acute pancolitis, most significant along the right colon. 2. Additional findings as above. [facility] [address] , [address] [place] [address] - Medical Decision Making This 65-year-old female who presents with abdominal pain and right-sided tenderness vomiting diarrhea since Tuesday morning. Symptoms improved with IV morphine IV Zofran IV fluid normal saline bolus. CT revealed right-sided pancolitis which corresponds with my impression food poisoning. Patient prescribed ciprofloxacin promethazine. Critical care attestation.: If time is entered above; I have spent that time in minutes in the direct care of this critically ill patient, excluding procedure time. ED Disposition Clinical Impression: Food poisoning Disposition: HOME / SELF CARE / HOMELESS Is pt being admited?: No Does the pt Need Aspirin: No Condition: Stable Instructions: Abdominal Pain (ED), Food Poisoning Prescriptions: Ciprofloxacin HCl 500 mg PO BID 3 Days #6 tablet Promethazine [Phenergan] 25 mg PO Q6HR PRN #10 tab PRN Reason: Nausea Referrals: PRIMARY CARE, [Primary Care Provider] - as needed
[2021-05-17 11:01] LABS: Basophils % (Auto) 0.3 % (0.0-1.8); Hematocrit 38.8 % (30.3-42.9); Hemoglobin 12.4 gm/dl (10.1-14.3); Lymphocytes # (Auto) 1.3 K/mm3 (1.2-5.4); Mean Corpuscular HGB Conc 32 % (30-34); Mean Corpuscular Volume 83 fl (79-97); Monocytes # (Auto) 0.7 K/mm3 (0.0-0.8); Monocytes % (Auto) 8.7 % (0.0-7.3); Platelet Count 182 K/mm3 (140-440); Red Blood Count 4.67 M/mm3 (3.65-5.03); Red Cell Distribution Width 14.6 % (13.2-15.2)
[2021-05-17 11:22] LABS: Blood Urea Nitrogen 7 mg/dL (7-17); Hemolysis Index 7
[2021-05-17 11:28] LABS: BUN/Creatinine Ratio 10
--- NOTE | 2021-05-17 12:36 | Cat Scan Report ---
CT ABDOMEN AND PELVIS WITH CONTRAST INDICATION / CLINICAL INFORMATION: R.U.Q. abdominal pain with nausea and vomiting x 4 days. TECHNIQUE: Axial CT images were obtained through the abdomen and pelvis after 100 cc Omnipaque [address] scans at this location are performed using CT dose reduction for ALARA by means of automated exposure control. COMPARISON: None available. FINDINGS: LOWER CHEST: There are trace pleural effusions with mild bibasilar atelectasis. There is moderate cor onary atherosclerosis with partially visualized sternotomy changes. No other significant abnormality. LIVER: No significant abnormality. GALLBLADDER: No significant abnormality. BILE DUCTS: No significant abnormality. PANCREAS: No significant abnormality. SPLEEN: No significant abnormality. ADRENALS: No significant abnormality. KIDNEYS / URETERS: No significant abnormality. STOMACH / SMALL BOWEL: No significant abnormality. COLON: There is generalized moderate thickening, most notable along the cecum and ascending colon whe re there is also mild/moderate surrounding inflammation. No other significant abnormality. APPENDIX: No significant abnormality. PERITONEUM: No free fluid. No free air. No fluid collection. LYMPH NODES: No significant adenopathy. AORTA / ARTERIES: No significant abnormality. IVC / VEINS: No significant abnormality. URINARY BLADDER: No significant abnormality. REPRODUCTIVE ORGANS: No significant abnormality. ADDITIONAL FINDINGS: None. BONES: No acute findings. There are mild degenerative changes of the spine and hips. IMPRESSION: 1. Evidence of uncomplicated acute pancolitis, most significant along the right colon. 2. Additional findings as above. Signer Name: Merrick Bedolla MD Signed: 05/17/2021 12:31 PM Workstation Name: [id number]
[2021-05-17 14:41] VITALS: BP 118/63
--- NOTE | 2021-05-18 08:56 | Electrocardiograph Report ---
[facility] Test Date: 2021-05-17 Test Time: 10:06:24 Pat Name: DWAYNE GRIFFIN Department: Room: Gender: F Hospitality Job Titles: NAYE : 1955 Requested By: TAMI GODINEZ Order Number: [id number] Reading MD: Josesito Johns Measurements Intervals Dexter Rate: 100 P: 75 RI: 181 QRS: 24 QRSD: 77 T: 106 QT: 363 QTc: 470 Interpretive Statements Sinus tachycardia Probable left atrial enlargement Abnrm T, consider ischemia, anterolateral lds No previous ECG available for comparison Electronically Signed On 05-18-2021 8:56:05 EST by Josesito Johns
== END 2021-05-17 14:42 | disposition home or self-care (01) ==
LOC: ED 09:49
DX: A05.9 Bacterial foodborne intoxication, unspecified (principal); R10.84 Generalized abdominal pain; R19.7 Diarrhea, unspecified; I10 Essential (primary) hypertension; E11.9 Type 2 diabetes mellitus without complications; Z88.8 Allergy status to other drugs, medicaments and biological substances
CPT/HCPCS: 36415; 74177; 80048; 82150; 83690; 85025; 93005; 96361; 96374; 96375; 96376; 99284; C9113; J2270; J2405; J7030; Q9967; Q0162

== ENCOUNTER 2022-01-06 09:51 | Outpatient (CLI) | payer OTHER ==
[2022-01-06 12:39] LABS: Chol/HDL Ratio 2.25 %
== END 2022-01-06 09:52 | disposition home or self-care (01) ==
LOC: LABHHL 09:51
PROVIDERS: ATTEND Internal Medicine
DX: E11.65 Type 2 diabetes mellitus with hyperglycemia (principal); E78.5 Hyperlipidemia, unspecified
CPT/HCPCS: 36415; 80061; 83036